=== PATIENT | female | born 1985 | race Caucasian/White ===

== ENCOUNTER 2024-02-06 16:33 | Emergency (ER) | payer BC, MEDICAID ==
[~2024-02-06] VITALS: Ht 177.8 cm; Wt 99.8 kg
[2024-02-06 16:39] VITALS: BP 124/80; PULSE 85; RESP 18; TEMP 97.6; O2SAT 98
[2024-02-06 17:53] LABS: BILIRUBIN,URINE 1+ (NEGATIVE); BLOOD, URINE 3+ (NEGATIVE); COLOR,URINE YELLOW (YELLOW); LEUKOCYTE ESTERASE ,URINE 1+ (NEGATIVE); NITRITE, URINE NEGATIVE (NEGATIVE); PROTEIN,URINE NEGATIVE (NEGATIVE); UGLUCOSE NEGATIVE (NEGATIVE); UROBILINOGEN,URINE 0.2 EU/dL (0.2 - 1)
[2024-02-06 18:01] LABS: BASOPHILS % (AUTO) 0.5 % (0.0-2.0); EOSINOPHILS # (AUTO) 0.1 K/uL (0-0.4); EOSINOPHILS % (AUTO) 1.3 % (0.0-4.0); HEMATOCRIT 33.4 % (36-48); LYMPHOCYTES # (AUTO) 1.5 K/uL (2.5-16.5); LYMPHOCYTES % (AUTO) 16.6 % (20.5-51.1); MEAN CORPUSCULAR HEMOGLOBIN 24 pg (27-31); MEAN CORPUSCULAR HGB CONC 33 g/dL (33-37); MEAN CORPUSCULAR VOLUME 73.2 fL (80-94); MONOCYTES # (AUTO) 0.4 K/uL (0.8-1.0); MONOCYTES % (AUTO) 4.6 % (1.7-9.3); NEUTROPHILS # (AUTO) 6.8 K/uL (1.8-7.7); PLATELET COUNT (AUTO) 282 K/uL (140-450); RED BLOOD CELL COUNT(AUTO) 4.55 MIL/uL (4.20-5.40); RED CELL DISTRIBUTION WIDTH 26.8 % (11.6-13.7); WHITE BLOOD COUNT (AUTO) 8.8 K/uL (4.8-10.8)
[2024-02-06 18:11] LABS: APPEARANCE,URINE SLIGHTLY HAZY (CLEAR)
[2024-02-06] MEDS: NACL 0.9% 1,000 ML IV ONE (18:12)
[2024-02-06 18:13] LABS: BACTERIA,URINE 2+ /HPF (None Seen); RBC,URINE 20-50 /HPF (0-5); SQUAMOUS EPITHELIAL CELL,UR MANY /LPF (0-3 (FEW)); WBC,URINE 60-80 /HPF (0-5)
[2024-02-06 18:14] LABS: CALCIUM OXALATE CRYSTALS,UR 0-10 /HPF (None Seen); MUCUS,URINE 2+ /LPF (None Seen)
[2024-02-06] MEDS: METOCLOPRAMIDE 10 MG/2 ML INJ VIAL IVP ONE (18:18)
[2024-02-06 18:28] LABS: ICTOTEST NEGATIVE (NEGATIVE)
[2024-02-06] MEDS ORDERED: CEPH-588 PO (18:59)
[2024-02-06] MEDS ORDERED: METO-486 PO (18:59)
[2024-02-06] MEDS: ACETAMINOPHEN EXTRA STRENGTH 500 MG TAB PO ONE (19:10)
[2024-02-06 19:16] VITALS: BP 110/61; PULSE 85; RESP 18; TEMP 97.6; O2SAT 98
== END 2024-02-06 19:16 | disposition home or self-care (01) ==
LOC: MED 16:33
DX: O20.0 Threatened abortion (principal); O21.9 Vomiting of pregnancy, unspecified; O29.41 Spinal and epidural anesthesia induced headache during pregnancy, first trimester; O26.891 Other specified pregnancy related conditions, first trimester; O23.41 Unspecified infection of urinary tract in pregnancy, first trimester; N39.0 Urinary tract infection, site not specified; Z3A.10 10 weeks gestation of pregnancy; Z79.899 Other long term (current) drug therapy; Z98.890 Other specified postprocedural states
CPT/HCPCS: 36415; 76801; 81001; 81025; 84702; 85025; 86900; 86901; 87086; 96361; 96374; 99285; J2765; J7030; Q0092

== ENCOUNTER 2024-02-21 19:27 | Emergency (ER) | payer MEDICAID ==
[~2024-02-21] VITALS: Ht 177.8 cm; Wt 97.5 kg
[~2024-02-21 19:27] MED LIST: CEPH-588 PO; METO-486 PO
[2024-02-21 19:46] VITALS: BP 116/73; PULSE 77; RESP 18; TEMP 98.1; O2SAT 95
[2024-02-21 20:23] LABS: BASOPHILS % (AUTO) 0.3 % (0.0-2.0); EOSINOPHILS # (AUTO) 0.1 K/uL (0-0.4); EOSINOPHILS % (AUTO) 1.3 % (0.0-4.0); HEMATOCRIT 32.8 % (36-48); HEMOGLOBIN 10.8 g/dL (12.0-16.0); LYMPHOCYTES # (AUTO) 1.3 K/uL (2.5-16.5); LYMPHOCYTES % (AUTO) 13.5 % (20.5-51.1); MEAN CORPUSCULAR HEMOGLOBIN 25 pg (27-31); MEAN CORPUSCULAR HGB CONC 33 g/dL (33-37); MEAN CORPUSCULAR VOLUME 74.9 fL (80-94); MONOCYTES # (AUTO) 0.4 K/uL (0.8-1.0); MONOCYTES % (AUTO) 4.2 % (1.7-9.3); NEUTROPHILS # (AUTO) 7.6 K/uL (1.8-7.7); NEUTROPHILS % (AUTO) 80.7 % (42.2-75.2); PLATELET COUNT (AUTO) 260 K/uL (140-450); RED BLOOD CELL COUNT(AUTO) 4.38 MIL/uL (4.20-5.40); RED CELL DISTRIBUTION WIDTH 23.4 % (11.6-13.7); WHITE BLOOD COUNT (AUTO) 9.5 K/uL (4.8-10.8)
[2024-02-21 21:04] LABS: APPEARANCE,URINE CLEAR (CLEAR); BILIRUBIN,URINE NEGATIVE (NEGATIVE); BLOOD, URINE 3+ (NEGATIVE); COLOR,URINE YELLOW (YELLOW); LEUKOCYTE ESTERASE ,URINE NEGATIVE (NEGATIVE); NITRITE, URINE NEGATIVE (NEGATIVE); PROTEIN,URINE NEGATIVE (NEGATIVE); UGLUCOSE NEGATIVE (NEGATIVE); UROBILINOGEN,URINE 0.2 EU/dL (0.2 - 1)
[2024-02-21 21:18] LABS: BACTERIA,URINE 10-30 (MOD) /HPF (None Seen); SQUAMOUS EPITHELIAL CELL,UR 4-10 (MOD) /LPF (0-3 (FEW))
[2024-02-21] MEDS ORDERED: NITR100C7 PO (21:51)
[2024-02-21 22:10] VITALS: BP 119/70; PULSE 77; RESP 18; TEMP 98.1; O2SAT 95
== END 2024-02-21 22:10 | disposition home or self-care (01) ==
LOC: MED 19:27
DX: O20.0 Threatened abortion (principal); O23.91 Unspecified genitourinary tract infection in pregnancy, first trimester; R82.71 Bacteriuria; Z3A.12 12 weeks gestation of pregnancy; Z98.890 Other specified postprocedural states; Z79.899 Other long term (current) drug therapy
CPT/HCPCS: 36415; 76801; 81001; 81025; 84702; 85025; 86900; 86901; 87086; 99284; Q0092